=== PATIENT | male | born 1975 | race Caucasian/White ===

== ENCOUNTER 2018-02-06 10:44 | Emergency (ER) | payer OTHER ==
[~2018-02-06] VITALS: Ht 182.9 cm; Wt 123.0 kg
[~2018-02-06 10:44] MED LIST: BACL10TA PO; BUPR-79 PO; CLC100X PO; HYDR-3983 PO; LISI-725 PO; TRAZ50TA35 PO; ZNT/150 PO; ZOLP10TA PO
[2018-02-06 10:46] VITALS: TEMP 36.5; Ht 182.9 cm; Wt 123.0 kg
[2018-02-06] MEDS ORDERED: CITA10TA8 PO (11:31)
[2018-02-06] MEDS ORDERED: BACLOFEN 10 MG TAB PO STA (11:52)
--- NOTE | 2018-02-06 12:18 | DIAGNOSTIC IMAGING REPORT ---
L-SPINE MIN 4 VIEWS ROUTINE HISTORY: Pain r/o itp cath fx COMPARISON: 12/29/2012 FINDINGS: There is no fracture. Mild scoliosis Disc spaces are preserved. Infusion and or epidural catheter entering L4-L5 level lumbar spine. Its superior extent is not easily identified. IMPRESSION: 1. Mild scoliosis. 2. Epidural catheter positioned with the catheter entering the L4-L5 interspace although superior extent is not confirmed easily due to the poor catheter visibility. The above report was generated using voice recognition software. It may contain grammatical, syntax or spelling errors. Electronically signed by: Kemal Pires M.D. 02/06/2018 12:17 PM Dictated Date/Time: 02/06/2018 12:15 PM
--- NOTE | 2018-02-06 12:20 | DIAGNOSTIC IMAGING REPORT ---
ADDENDUM Note is made that the tip marker is at T7-T8 level of the thoracic spine. Again, the catheter itself is not visualized. Electronically signed by: Kemal Pires M.D. 02/06/2018 12:31 PM Dictated Date/Time: 02/06/2018 12:31 PM ORIGINAL REPORT THORACIC SPINE 3 VIEWS ROUTINE HISTORY: Catheter position r/o cath fx ITP COMPARISON: None. FINDINGS: There is no fracture. No subluxation. Disc spaces are preserved. Epidural catheter and superior extent is not well-defined on this study IMPRESSION: No acute process of the thoracic spine. Nondiagnostic visibility of the infusion catheter. The above report was generated using voice recognition software. It may contain grammatical, syntax or spelling errors. Electronically signed by: Kemal Pires M.D. 02/06/2018 12:18 PM Dictated Date/Time: 02/06/2018 12:18 PM
[2018-02-06 12:45] LABS: BASO % 0.1 %; BASO ABS # 0.01 K/uL (0-0.2); EOS % 0.2 %; EOS ABS # 0.02 K/uL (0-0.5); HEMATOCRIT 48.3 % (42-52); HEMOGLOBIN 16.9 g/dL (14.0-18.0); IG# 0.01 K/uL (0.00-0.02); LYMPH % 17.7 %; LYMPH ABS # 1.42 K/uL (1.2-3.4); MEAN CELL VOLUME 86.9 fL (80-100); MEAN CORPUSCULAR HEMOGLOBIN 30.4 pg (25-34); MEAN PLATELET VOLUME 11.7 fL (7.4-10.4); MONO % 5.5 %; MONO ABS # 0.44 K/uL (0.11-0.59); NEUT % 76.4 %; NEUT ABS # 6.11 K/uL (1.4-6.5); PLATELET COUNT 218 K/uL (130-400); RED CELL DISTRIBUTION WIDTH CV 12.9 % (11.5-14.5); WHITE BLOOD COUNT 8.01 K/uL (4.8-10.8)
--- NOTE | 2018-02-06 12:55 | Pain Management Consultation ---
Pain Management Consultation Date of Consultation Feb 06, 2018. Reason for Consultation Possible baclofen withdrawal History 42-year-old white male well-known to the 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 He had been doing fairly well in regards to spasticity due to the combination of intrathecal baclofen and Botox injections to his left upper extremity however last evening he started to note increasing spasticity over his left upper and lower extremities for no known etiology. He denies any trauma or falls or damage to his intrathecal pump. He admits to positive symptoms of dysuria and frequent urination. He denies any fever, chills, change in motor weakness or footdrop. He states that he is concerned about baclofen withdrawal and admits to feeling shaky, sweaty, vague abdominal pain, and that "something is not quite right." He reports a significant increase in involuntary motor movement to his left upper extremity. He did not utilize any oral baclofen yet this morning. He reports that he was due for a baclofen refill at the pain management office today. Past Medical/Surgical History (1) CVA (cerebral vascular accident) (2) Tuberculosis meningitis (3) Spasticity as late effect of cerebrovascular accident (CVA) (4) Status post insertion of intrathecal baclofen pump (5) Hypertension Social / Work History Smoking Status: Never smoker Smokeless Tobacco Use: No Alcohol Use: none Drug Use: none Marital Status: single Housing Status: lives with family Occupation: disabled, other Allergies Coded Allergies: Corticosteroids (Verified Allergy, Unknown, _, 02/06/18) Egg (Verified Allergy, Unknown, _, 02/06/18) Latex1 -Allergic Contact Dermititis (Verified Allergy, Unknown, RASH, 02/06) Medications Baclofen Wellbutrin Celexa [place] Lisinopril Zantac Trazodone Ambien Review of Systems Constitutional: Negative for fever, chills, positive for sweating Eyes: Negative for eye pain, photophobia, drainage Ear, nose, mouth, throat: Negative for ear pain, nasal congestion, mouth lesions , change in voice Respiratory: Negative for wheezing, sputum production Cardiovascular: Negative for chest pain, palpitations, calf pain Gastrointestinal: Positive for abdominal pain, negative for belching, bloating Genitourinary: Positive for dysuria, negative urinary incontinence, positive urinary urgency Musculoskeletal: Negative for deformities Integumentary: Negative for nail changes, skin yellowing, pruritus Neurological: Negative for abnormal speech, seizure type activity Physical Exam Height & Weight: Height 6 feet, 0 inches. Weight 123.000 (Kilograms) 271 (Pounds) Last Vital Signs Documentation Date Time Temp Pulse Resp B/P (MAP) Pulse Ox O2 Delivery O2 Flow Rate FiO2 02/06/18 10:46 36.5 87 18 200/134 97 Room Air Exam: Constitutional: Well-developed, well-nourished, healthy-appearing, overweight. He appears to be sweaty, shaky, anxious Psych: Awake, alert, and oriented 3 with normal affect and mood. Recent memory appears grossly intact Eyes: Pupils are equally round and reactive to light with normal size pupils, eyelids appear normal Ear, nose, mouth, and throat: Moist nasal and oral membranes, lips and tongues appear normal, no external ear abnormalities are noted Neck: The trachea is midline without deviation and no thyromegaly is noted Respiratory: Normal respiratory effort without distress, no audible wheezes or rhonchi CV: Normal S1 and S2, carotid upstroke is within normal limits Chest: Deferred GI/abdomen: Non-tender without guarding, no masses noted, intrathecal pump is located in the right lower quadrant no signs of fluctuance drainage or discharge or dehiscence surrounding the intrathecal pump pocket Musculoskeletal: Head is normocephalic and atraumatic, gait was not observed Cervical: Lordotic curve: Normal Range of motion is normal with extension, flexion, side- bending, rotation Tenderness: Non-tender over the axial midline Strength: Strength is 5 out of 5 strength right upper extremity in all planes, difficult to assess in the left secondary to significant/substantial involuntary movements of the entire left upper extremity. Flexion contracture of the hand/wrist is noted. No evidence of allodynia, hyperpathia or hyperalgesic response. Sensation of upper extremities: Intact bilaterally Myofascial spasm: Significant spasticity noted over the left upper extremity globally. Thoracic: Kyphotic curve: Normal Range of motion is normal with extension, flexion, side- bending, rotation Tenderness: Nontender over the axial midline Lumbar: Lordotic curve: Decreased with a well-healed incision over the catheter site no fluctuance drainage dehiscence noted around the intrathecal catheter site Range of motion is slightly decreased with extension, flexion, side-bending, rotation secondary to overall condition of spasticity and body habitus Tenderness: Nontender over the axial midline Strength: Strength is equal in the right lower extremity with 5 out of 5 strength in all planes, significant spasticity in the left lower extremity prohibits ability for strength testing Sensation of lower extremities: Intact bilaterally Myofascial spasm: No appreciable spasm in the right lower extremity. Significant hamstring and quadricep as well as gastroc spasticity in the left lower extremity Greater trochanters: Nontender bilaterally Sacroiliac joints: Nontender bilaterally Fabere and Gaenslens: negative bilaterally Pathologic reflexes noted: None Skin: No rashes, lesions, ulcers, and duration are noted Neuro: No nystagmus noted, the tongue is midline, the patient is able to rotate their head bilaterally : Deferred Laboratory Laboratory Review: no results for review Laboratory Results (Last CBC): UA, CBC and PRP pending Imaging Radiology Findings Patient: SOREN BRADFORD Address1: [address] [facility] Rec: [id number] Address2: Acct ID: [id number] [facility] Zip: [place] [address] Date: 1975 Sex: M Room/Bed: Ref Phy: Ariel Mendoza D.O. SC: TANO Att Phy: Report #: [id number] Tenisha Phy: Ariel Mendoza D.O. Test: LS Admit Phy: Buttonhole Facer: EULALIA Interpreting Phy: Kemal Pires M.D. Diagnosis: THINKS BACLOFEN PUMPS NOT WORKING Ordering Phy: Karla Hargrove D.O. Service Date: 02/06/18 Admit Date: 02/06/18 MNE: PWRSCRIBE CONF: DICTATED BY: Kemal Pires M.D.]] CC: Karla Hargrove, Vini Lance D.O. Usaitis, Robert J, D.O. Endcc: [~ rep ct add3]] L-SPINE MIN 4 VIEWS ROUTINE HISTORY: Pain r/o itp cath fx COMPARISON: 12/29/2012 FINDINGS: There is no fracture. Mild scoliosis Disc spaces are preserved. Infusion and or epidural catheter entering L4-L5 level lumbar spine. Its superior extent is not easily identified. IMPRESSION: 1. Mild scoliosis. 2. Epidural catheter positioned with the catheter entering the L4-L5 interspace although superior extent is not confirmed easily due to the poor catheter visibility. Patient: SOREN BRADFORD Address1: [address] [facility] Rec: [id number] Address2: Acct ID: [id number] [facility] Zip: [place] [address] Date: 1975 Sex: M Room/Bed: Ref Phy: Ariel Mendoza D.O. SC: TANO Att Phy: Report #: [id number] Tenisha Phy: Ariel Mendoza D.O. Test: TS3 Admit Phy: Buttonhole Facer: EULALIA Interpreting Phy: Kemal Pires M.D. Diagnosis: THINKS BACLOFEN PUMPS NOT WORKING Ordering Phy: Karla Hargrove D.O. Service Date: 02/06/18 Admit Date: 02/06/18 MNE: PWRSCRIBE CONF: DICTATED BY: Kemal Pires M.D.]] CC: Karla Hargrove, Vini Lance D.O. Usaitis, Robert J, D.O. Endcc: [~ rep ct add3]] ADDENDUM Note is made that the tip marker is at T7-T8 level of the thoracic spine. Again, the catheter itself is not visualized. Electronically signed by: Kemal Pires M.D. 02/06/2018 12:31 PM Dictated Date/Time: 02/06/2018 12:31 PM ORIGINAL REPORT THORACIC SPINE 3 VIEWS ROUTINE HISTORY: Catheter position r/o cath fx ITP COMPARISON: None. FINDINGS: There is no fracture. No subluxation. Disc spaces are preserved. Epidural catheter and superior extent is not well-defined on this study IMPRESSION: No acute process of the thoracic spine. Nondiagnostic visibility of the infusion catheter. Past Records Previous Records: personally reviewed by me Assessment 1. 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 Possible baclofen withdrawal 3. Possible urinary tract infection Recommendations 1. Awaiting UA, CBC, PRP, CT thoracolumbar spine imaging at the current time to rule out catheter fracture or infection as etiology of increased spasms. 2. I did increase his baclofen pump 10% to run in flex dosing at a total daily dose of 436 pg per day. He has an ANGEL of 16 months and 5.7 mL reservoir volume and a refill interval of 7 days to alarm on 02/13/2018. Provided the laboratory studies are appropriate will plan for intrathecal baclofen refill today. 3. Baclofen 10 mg p.o. 1 now. 4. Should imaging and laboratory studies fail to show evidence of infection or catheter fracture may necessitate catheter access port study to rule out other catheter pathology. 5. Thank you for this consultation Addendum @1250: The patient's labs and imaging was reviewed in the computer and with the radiologist. There is no evidence of infection as etiology of increased spasms. No evidence on imaging for catheter fracture or disruption. Recommend continuation of baclofen PO and increased baclofen via intrathecal pump. His intrathecal pump refill was completed today after informed consent was obtained. The patient will f/u in our office 02/08/18 at 1320 with [facility]. He has our 17/01 office emergency contact information if he should have any questions or concerns. INTRATHECAL PUMP REFILL AND REPROGRAM PROCEDURE Procedure performed/supervised by: Karla Hargrove DO. Pump site: Left lower quadrant. Pump size: 20 mL. Medication: Baclofen preservative-free 2000 mcg/mL. Daily dose: Baclofen 436 mcg per day. ANGEL: 16 months. Informed consent was obtained and witnessed. He was placed in the supine position. Immediately prior to starting the procedure, a ``time out was conducted with the staff and the patient where the patient was identified, proposed procedure was verified, consent was reviewed and the proper site for the planned procedure was identified. On examination, no signs of skin breakdown or infection were noted at the injection site. The site was cleansed with DuraPrep followed by Betadine. Sterile drapes were applied. Using the template and 22 gauge, 1.5 inch non-coring Adams needle pump reservoir was accessed uneventfully. 7 mL of the remaining medication for pump was removed and discarded. This volume was compared to the calculated volume of 5.7 mL. Pump was then refilled with medications as documented above. Bacteriostatic filter and constant negative pressure was maintained throughout the refill. Needle was withdrawn. Hemostasis noted. Band-Aid was applied. Pump was reprogrammed as documented above. Patient was given a printout and discharge instructions. Patient voiced understanding. They were discharged with an adult driver material handler.
[2018-02-06 13:03] LABS: CALCIUM 9.6 mg/dl (8.5-10.1); CREATININE 1.05 mg/dl (0.60-1.40)
[2018-02-06 13:09] LABS: POTASSIUM 4.1 mmol/L (3.5-5.1)
--- NOTE | 2018-02-06 13:43 | DIAGNOSTIC IMAGING REPORT ---
THORACIC SPINE WITHOUT CLINICAL HISTORY: 42 years-old Male presenting with r/o ITP, cath fx, baclofen withdrawal. TECHNIQUE: Multidetector CT of the thoracic spine was performed without the use of intravenous contrast. IV contrast: None. A dose lowering technique was used consistent with the principles of ALARA (as low as reasonably achievable). COMPARISON: Plain radiographs from earlier the same day. CT DOSE (mGy.cm): The estimated cumulative dose is 2741.73 mGy.cm. FINDINGS: Bus Mechanic topogram: Unremarkable. Normal thoracic kyphosis. No significant scoliosis. Vertebral bodies maintain normal height and alignment. Intervertebral disc heights preserved. Multilevel degenerative changes in the lower thoracic and upper lumbar spine. No osseous neural foraminal narrowing. No acute fracture or subluxation. The tip of the intraspinal catheter terminates at T8-9. No evidence of discontinuity of the catheter along the visualized course though the catheter is not exceedingly radiopaque. The catheter extends inferior to the [id number] within the spinal canal. Paraspinal soft tissues within normal limits allowing for noncontrast technique. Atherosclerosis noted. Visualized portion of the lungs are clear. IMPRESSION: 1. Visualized portion of the intraspinal catheter appears intact. A catheter terminates at T8-9. 2. No acute osseous injury or advanced degenerative change of the thoracic spine. Electronically signed by: Royal Streeter M.D. 02/06/2018 1:41 PM Dictated Date/Time: 02/06/2018 1:34 PM
--- NOTE | 2018-02-06 13:44 | DIAGNOSTIC IMAGING REPORT ---
LUMBAR SPINE WITHOUT CT DOSE: HISTORY: Catheter position r/o ITP cath fx, baclofen withdrawal TECHNIQUE: Multiaxial CT images of the lumbar spine were performed and reformatted in the sagittal and coronal plane without the use of contrast. A dose lowering technique was utilized adhering to the principles of ALARA. COMPARISON: None. FINDINGS: Catheter enters the L3-L4 interspinous space and proceeds in a superior fashion within the spinal canal to the T7-T8 level. The catheter appears intact. IMPRESSION: Infusion catheter appears intact within the lumbar spinal region. The above report was generated using voice recognition software. It may contain grammatical, syntax or spelling errors. Electronically signed by: Kemal Pires M.D. 02/06/2018 1:43 PM Dictated Date/Time: 02/06/2018 1:40 PM
[2018-02-06 14:09] VITALS: BP 176/97; PULSE 71; O2SAT 98
--- NOTE | 2018-02-06 14:25 | EMERGENCY ROOM VISIT NOTE ---
History Report prepared by Didier: Reji Daniel Under the Supervision of: Dr. Vini Pemberton D.O. First contact with patient: 11:10 Chief Complaint: OTHER COMPLAINT Stated Complaint: THINKS BACLOFEN PUMPS NOT WORKING History of Present Illness The patient is a 42 year old male who presents to the Emergency Room with complaints of worsening spasms in his left upper extremity that he began to experience last night. The patient is also complaining of "really bad sweats, jitteriness, and increased urinary frequency." He adds that since last night he has been urinating every 15 minutes or so. 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 Today is the patient's scheduled date to have his Baclofen pump refilled, but he felt that he could not drive himself any longer so he brought himself into the emergency department. He states that he does not feel safe to drive to the Pain Management clinic. He does have a scheduled appointment at 1300 today. Source of History: patient Onset: Last night Position: arm (left) Quality: other (spasms) Timing: worsening Associated Symptoms: + diaphoresis Review of Systems See HPI for pertinent positives & negatives. A total of 10 systems reviewed and were otherwise negative. 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 Social History Smoking Status: Never Smoker Alcohol Use: none Drug Use: none Marital Status: single Occupation Status: other Current/Historical Medications Scheduled Baclofen (Lioresal), 20 MG PO BID Bupropion (Wellbutrin Sr), 150 MG PO DAILY Citalopram Hydrobromide (Celexa), Unknown Dose PO DAILY Lisinopril (Zestril), 20 MG PO DAILY Ranitidine Hcl (Zantac), 150 MG PO BID Trazodone Hcl (Trazodone), 100 MG PO HS Zolpidem Tartrate (Ambien), 10 MG PO HS Scheduled PRN Hydrocodone/Acetaminophen 7.5MG/325MG (Marathon 7.5MG/325MG), 1 TAB PO BID PRN for Pain Allergies Coded Allergies: Corticosteroids (Verified Allergy, Unknown, _, 02/06/18) Egg (Verified Allergy, Unknown, _, 02/06/18) Latex1 -Allergic Contact Dermititis (Verified Allergy, Unknown, RASH, 02/06) Physical Exam Vital Signs Date Time Temp Pulse Resp B/P (MAP) Pulse Ox O2 Delivery O2 Flow Rate FiO2 02/06/18 14:09 71 16 176/97 98 Room Air 02/06/18 12:45 76 18 177/107 98 Room Air 02/06/18 10:46 36.5 87 18 200/134 97 Room Air Physical Exam CONSTITUTIONAL/VITAL SIGNS: Reviewed / noted above. GENERAL: Non-toxic in appearance. INTEGUMENTARY: He has mild diaphoresis. HEAD: Normocephalic. EYES: without scleral icterus or trauma. ENT/OROPHARYNX: clear and moist. LYMPHADENOPATHY/NECK: Is supple without lymphadenopathy or meningismus. RESPIRATORY: Lungs clear and equal. CARDIOVASCULAR: Regular rate and rhythm. GI/ABDOMEN: Soft and nontender. No organomegaly or pulsatile mass. No rebound or guarding. Normal bowel sounds. EXTREMITIES: Warm and well perfused. Mild spasm of the LUE. BACK: No CVA tenderness. NEUROLOGICAL: Intact without focal deficits. PSYCHIATRIC: normal affect. MUSCULOSKELETAL: Normally developed with good muscle tone. Medical Decision & Procedures ER Provider Diagnostic Interpretation: Radiology results as stated below per my review and radiologist interpretation: LUMBAR SPINE WITHOUT CT DOSE: HISTORY: Catheter position r/o ITP cath fx, baclofen withdrawal TECHNIQUE: Multiaxial CT images of the lumbar spine were performed and reformatted in the sagittal and coronal plane without the use of contrast. A dose lowering technique was utilized adhering to the principles of ALARA. COMPARISON: None. FINDINGS: Catheter enters the L3-L4 interspinous space and proceeds in a superior fashion within the spinal canal to the T7-T8 level. The catheter appears intact. IMPRESSION: Infusion catheter appears intact within the lumbar spinal region. The above report was generated using voice recognition software. It may contain grammatical, syntax or spelling errors. Electronically signed by: Kemal Pires M.D. 02/06/2018 1:43 PM Dictated Date/Time: 02/06/2018 1:40 PM THORACIC SPINE WITHOUT CLINICAL HISTORY: 42 years-old Male presenting with r/o ITP, cath fx, baclofen withdrawal. TECHNIQUE: Multidetector CT of the thoracic spine was performed without the use of intravenous contrast. IV contrast: None. A dose lowering technique was used consistent with the principles of ALARA (as low as reasonably achievable). COMPARISON: Plain radiographs from earlier the same day. CT DOSE (mGy.cm): The estimated cumulative dose is 2741.73 mGy.cm. FINDINGS: Blurb Writer topogram: Unremarkable. Normal thoracic kyphosis. No significant scoliosis. Vertebral bodies maintain normal height and alignment. Intervertebral disc heights preserved. Multilevel degenerative changes in the lower thoracic and upper lumbar spine. No osseous neural foraminal narrowing. No acute fracture or subluxation. The tip of the intraspinal catheter terminates at T8-9. No evidence of discontinuity of the catheter along the visualized course though the catheter is not exceedingly radiopaque. The catheter extends inferior to the [id number] within the spinal canal. Paraspinal soft tissues within normal limits allowing for noncontrast technique. Atherosclerosis noted. Visualized portion of the lungs are clear. IMPRESSION: 1. Visualized portion of the intraspinal catheter appears intact. A catheter terminates at T8-9. 2. No acute osseous injury or advanced degenerative change of the thoracic spine. Electronically signed by: Royal Streeter M.D. 02/06/2018 1:41 PM Dictated Date/Time: 02/06/2018 1:34 PM L-SPINE MIN 4 VIEWS ROUTINE HISTORY: Pain r/o itp cath fx COMPARISON: 12/29/2012 FINDINGS: There is no fracture. Mild scoliosis Disc spaces are preserved. Infusion and or epidural catheter entering L4-L5 level lumbar spine. Its superior extent is not easily identified. IMPRESSION: 1. Mild scoliosis. 2. Epidural catheter positioned with the catheter entering the L4-L5 interspace although superior extent is not confirmed easily due to the poor catheter visibility. The above report was generated using voice recognition software. It may contain grammatical, syntax or spelling errors. Electronically signed by: Kemla Pires M.D. 02/06/2018 12:17 PM Dictated Date/Time: 02/06/2018 12:15 PM ADDENDUM Note is made that the tip marker is at T7-T8 level of the thoracic spine. Again, the catheter itself is not visualized. Electronically signed by: Kemal Pires M.D. 02/06/2018 12:31 PM Dictated Date/Time: 02/06/2018 12:31 PM ORIGINAL REPORT THORACIC SPINE 3 VIEWS ROUTINE HISTORY: Catheter position r/o cath fx ITP COMPARISON: None. FINDINGS: There is no fracture. No subluxation. Disc spaces are preserved. Epidural catheter and superior extent is not well-defined on this study IMPRESSION: No acute process of the thoracic spine. Nondiagnostic visibility of the infusion catheter. The above report was generated using voice recognition software. It may contain grammatical, syntax or spelling errors. Electronically signed by: Kemal Piers M.D. 02/06/2018 12:18 PM Dictated Date/Time: 02/06/2018 12:18 PM Laboratory Results 02/06/18 12:30 Red Blood Count 5.56, Mean Corpuscular Volume 86.9, Mean Corpuscular Hemoglobin 30.4, Mean Corpuscular Hemoglobin Concent 35.0, Mean Platelet Volume 11.7, Neutrophils (%) (Auto) 76.4, Lymphocytes (%) (Auto) 17.7, Monocytes (%) (Auto) 5.5, Eosinophils (%) (Auto) 0.2, Basophils (%) (Auto) 0.1, Neutrophils # (Auto) 6.11, Lymphocytes # (Auto) 1.42, Monocytes # (Auto) 0.44, Eosinophils # (Auto) 0.02, Basophils # (Auto) 0.01 02/06/18 12:30 Test 02/06/18 11:30 02/06/18 12:30 Urine Color YELLOW Urine Appearance CLEAR (CLEAR) Urine pH 5.0 (4.5-7.5) Urine Specific Alpha 1.016 (1.000-1.030) Urine Protein NEG (NEG) Urine Glucose (UA) NEG (NEG) Urine Ketones NEG (NEG) Urine Occult Blood NEG (NEG) Urine Nitrite NEG (NEG) Urine Bilirubin NEG (NEG) Urine Urobilinogen NEG (NEG) Urine Leukocyte Esterase NEG (NEG) White Blood Count 8.01 K/uL (4.8-10.8) Red Blood Count 5.56 M/uL (4.7-6.1) Hemoglobin 16.9 g/dL (14.0-18.0) Hematocrit 48.3 % (42-52) Mean Corpuscular Volume 86.9 fL (80-100) Mean Corpuscular Hemoglobin 30.4 pg (25-34) Mean Corpuscular Hemoglobin Concent 35.0 g/dl (32-36) Platelet Count 218 K/uL (130-400) Mean Platelet Volume 11.7 fL (7.4-10.4) Neutrophils (%) (Auto) 76.4 % Lymphocytes (%) (Auto) 17.7 % Monocytes (%) (Auto) 5.5 % Eosinophils (%) (Auto) 0.2 % Basophils (%) (Auto) 0.1 % Neutrophils # (Auto) 6.11 K/uL (1.4-6.5) Lymphocytes # (Auto) 1.42 K/uL (1.2-3.4) Monocytes # (Auto) 0.44 K/uL (0.11-0.59) Eosinophils # (Auto) 0.02 K/uL (0-0.5) Basophils # (Auto) 0.01 K/uL (0-0.2) RDW Standard Deviation 41.0 fL (36.4-46.3) RDW Coefficient of Variation 12.9 % (11.5-14.5) Immature Granulocyte % (Auto) 0.1 % Immature Granulocyte # (Auto) 0.01 K/uL (0.00-0.02) Anion Gap 7.0 mmol/L (3-11) Est Creatinine Clear Calc Drug Dose 124.1 ml/min Estimated GFR () 101.0 Estimated GFR (Non- 87.1 BUN/Creatinine Ratio 10.7 (10-20) Calcium Level 9.6 mg/dl (8.5-10.1) Laboratory results as stated above per my review. Medications Administered Medications (Trade) Dose Ordered Sig/Sha Route Start Time Stop Time Status Last Admin Dose Admin Baclofen (Lioresal Tab) 10 mg NOW STAT PO 02/06/18 11:52 02/06/18 11:53 DC 02/06/18 11:57 10 MG ED Course 1113: Previous medical records were reviewed. The patient was evaluated in room C3. A complete history and physical examination was performed. 1142: I discussed the case with Dr. Karla Hargrove - Pain Management. She will admit the patient to the hospitalist staff. 1152: Ordered Baclofen 10 mg PO. Medical Decision Differential includes infection, baclofen pump failure, ran out of baclofen pump medication. This is a 42-year-old male who presents to the ED with a chief complaint that he may be having baclofen withdrawal. The patient reports increased spasm in his left arm as well as some diaphoresis. He also feels a little jittery and last night was peeing a lot. I spoke with Dr. Hargrove about the patient. She saw the patient in the emergency department and did an evaluation with regards to the pump. Refer to her note for additional information. The patient's blood work and urinalysis today was unremarkable. He did have some x-rays and CAT scans are also unremarkable. The patient was discharged on oral baclofen by Dr. Hargrove. The patient was given a dose here. He was also given a dose of trazodone and Ambien for tonight as he is staying at his brother's house. He was felt to be stable for discharge. He is following up Tuesday with Dr. Hargrove in the office. Medication Reconcilliation Current Medication List: was personally reviewed by me Blood Pressure Screening Patient's blood pressure: Elevated blood pressure Blood pressure disposition: Elevated BP felt to be situational Impression Primary Impression: Drug withdrawal Additional Impression: Presence of intrathecal baclofen pump Scribe Attestation The scribe's documentation has been prepared under my direction and personally reviewed by me in its entirety. I confirm that the note above accurately reflects all work, treatment, procedures, and medical decision making performed by me. Departure Information Dispostion Home / Self-Care Referrals Ariel Mendoza D.O. (PCP) Patient Instructions My [facility] Additional Instructions Follow-up with Dr. Hargrove on Tuesday as scheduled. Take baclofen as prescribed by Dr. Hargrove. 1 dose of trazodone and 1 dose of Ambien was provided for you for tonight. Problem Qualifiers
[2018-02-06] MEDS ORDERED: TRAZODONE HCL 100 MG TAB PO ONE (14:30)
[2018-02-06] MEDS ORDERED: ZOLPIDEM TARTRATE 10 MG TAB PO ONE (14:30)
[2018-02-13] MEDS ORDERED: NXM/40 PO (13:09)
== END 2018-02-06 14:37 | disposition home or self-care (01) ==
LOC: C.EDB 10:45 → C.EDC 14:37
DX: F19.239 Other psychoactive substance dependence with withdrawal, unspecified (principal); M62.838 Other muscle spasm; Z96.89 Presence of other specified functional implants; Z86.73 Personal history of transient ischemic attack (TIA), and cerebral infarction without residual deficits; Z86.11 Personal history of tuberculosis; I10 Essential (primary) hypertension; Z91.012 Allergy to eggs; Z91.040 Latex allergy status; Z88.8 Allergy status to other drugs, medicaments and biological substances

== ENCOUNTER 2025-01-03 06:01 | Observation (INO) ==
--- NOTE | 2025-01-01 14:20 | History & Physical Report ---
Date of Service January 01, 2025 Assessment & Plan (1) Spasticity as late effect of cerebrovascular accident (CVA): (2) Presence of intrathecal pump: Plan: Intrathecal pump was last replaced in 2018. Estimated replacement indicator is to alarm December of 2024. Since the intrathecal pump is near end of battery life, it is recommended that the pump be replaced. Catheter will remain intact. He is scheduled for pump replacement on 01/03/2025. Risks and benefits were reviewed with the patient and he is understanding. He would like to proceed with the surgical procedure. He will proceed with intrathecal pump replacement with possible revision or replacement of the catheter. History of Present Illness Christopher Clark is a 49 year old white male that is well known to the [facility] with a history of left upper extremity spasticity secondary to a CVA that occurred when he was an infant due to tuberculosis meningitis. Patient is unable to control the movements of the left upper extremity. An intrathecal baclofen pump and catheter delivery system was implanted in 2012 and again replaced in 2018. Patient does report improvement in the spasticity of the left arm since the implantation of the intrathecal Baclofen pump and catheter delivery system. He is also receiving Botox injections into the arm which is helping diminish the spasm. Patient does report associated pain with the spast icity. He rates his pain a 6/10 on most days. He will take Hydrocodone sparingly which does help. Case discussed with Dr. Lacy Allergies Allergy/AdvReac Type Severity Reaction Status Date / Time egg Allergy Unknown SEVERE GI Verified 12/24/24 15:05 UPSET Steroids Allergy see note Uncoded 12/24/24 15:05 Home Medications Medication Instructions Recorded Confirmed Type ibuprofen 200 mg tablet 800 mg PO BID PRN 04/17/19 12/24/24 History trazodone 100 mg tablet 100 mg PO HS #90 tabs 06/13/24 12/24/24 Rx citalopram 20 mg tablet 20 mg PO QAM #90 tabs 08/13/24 12/24/24 Rx bupropion HCl 150 mg 24 hr tablet, 150 mg PO QAM 11/29/24 12/24/24 History extended release lansoprazole 15 mg capsule,delayed 15 mg PO PRN 11/29/24 12/24/24 History release zolpidem 10 mg tablet 10 mg PO HS PRN Sleep #30 tabs 12/12/24 12/24/24 Rx nystatin 100,000 unit/gram topical 1 applic topical BID PRN Fungal 12/13/24 12/24/24 Rx cream rash #30 grams baclofen 10 mg tablet 20 mg (2 x 10 mg) PO TID PRN 12/20/24 12/24/24 Rx spasms #60 tabs Past Med/Surg History Problem List Polyuria Weakness generalized Insomnia Bilateral hydrocele Left foot drop Sleeping difficulties Osteoarthritis of left shoulder Chronic left shoulder pain (Chronic) Tick bite of axillary region (Acute) End of battery life of intrathecal infusion pump Encounter for pre-operative examination Spasticity (Chronic) left arm Hypertension (Chronic) Presence of intrathecal pump (Chronic) Baclofen Muscle spasticity (Chronic) Depression (Chronic) Anxiety (Chronic) Stroke (Chronic) OCCURED IN 1977. PT HAS LEFT ARM SPACTICITY Spasticity as late effect of cerebrovascular accident (CVA) (Chronic) Hypertension (Chronic) Medical History History of esophageal stricture Obesity TMJ (temporomandibular joint syndrome) Occasionally "locks" when he yawns and needs "wiggled" to get it to close again. Osteoarthritis Most severe in left shoulder History of tuberculous meningitis Age 2, cause CVA Psoriasis Surgical History H/O oral surgery History of esophageal dilatation History of surgery PAIN PUMP PLACEMENT WITH CATHETER - Grade 3 view. Atraumatic intubation with Calle 3. ETT 8.0 (2012) Status post insertion of intrathecal baclofen pump Family History Brother Myocardial infarction Brother Myocardial infarction Skin cancer Father Myocardial infarction Cancer Mother Endometrial cancer Uncle Cancer Denies family history of Ovarian cancer Prostate cancer Breast cancer Colorectal cancer Social History Smoking Status: Former smoker Tobacco Type: Cigarettes and Cigars Age Started Using Tobacco: 18; Age Quit Using Tobacco: 34; packs per day: 2; Second Hand Exposure: No; Do You Dip or Chew Tobacco: No; Hx Alcohol Use: No Hx Substance Use: No Preferred Language: Turkish Communication Ability: Effective Visual Impairment: No Limitations Hearing Ability: Normal Biologics Specialist Required: No Beliefs That Will Affect Care: None marital status: Single Current Living Situation: Alone current occupational status: disabled Feels Safe at Home: Yes Childhood Exposure to Second-Hand Smoke: No Diet: regular Diet Comment: NO EGGS Dental Care, Regularly: No Physical Activity Frequency: 1-2 Times per Week Seatbelt Use: always Sunscreen Use: No Review of Systems Review of Systems: All systems reviewed & are unremarkable except as noted in HPI & below Physical Exam Physical Exam: GENERAL: This is a 49 year old male in no acute distress. HEAD/FACE: Normocephalic and atraumatic. EYES: No drainage or conjunctival injection. ENT: Nose without bleeding or discharge. Oral mucosa moist. NECK: Full ROM without apparent pain. No swelling or masses noted. RESPIRATORY: Patient with unlabored breathing. No signs of respiratory distress. CHEST/AXILLA: Chest movement symmetrical. No deformities noted. Abdomen: Soft and nondistended. Intrathecal pump site in the right lower quadrant without evidence of edema or erythema. BACK: Moves without difficulty SKIN: [place], warm and dry. No rash noted. MS/EXTREMITY: No swelling, no deformities. Involuntary movements of the left upper extremity. NEURO: Alert and appears oriented. Speech is fluent. Cranial Nerves are grossly intact. PSYCH: Alert, pleasant, affect is calm
--- NOTE | 2025-01-02 08:27 | Anesthesiology Consultation ---
Date of Service January 02, 2025 Assessment & Plan (1) Encounter for pre-operative examination: - Case discussed in detail with Dr. Smallwood who advised patient is acceptable to proceed including regarding persistent chest pressure; he advised checking EKG STAT am DOS. - ER 12/24/24 [facility]: "...problem with his baclofen pump. Patient reports that since he has been feeling very irritable hot dry mouth could not sleep cough chest pain that is intermittent. He states he felt that way previously when his baclofen pump was out so he thought he was going through baclofen withdrawal. Patient states he took extra doses of his trazodone and baclofen which he is allowed to do which helped him sleep and his symptoms got better. He states he went to see pain management today to evaluate his baclofen pump who told him that the baclofen pump was not empty and there is no malfunction to it and referred him to the emergency department...patient is watching TV in no acute distress. Patient reports no complaints at this time. Labs and imaging are unremarkable. Patient be discharged follow-up PCP and pain management who referred him to the emergency department. DISCHARGE - Plan of care discussed with patient and questions answered. The patient was given both verbal and prin hope discharge instructions. The patient verbalized understanding and ability to comply..." - Per marketing summer intern on 01/02/25: No known infectious disease contacts, current infectious disease symptoms in past 10 days or COVID positive test result in the past 30 days. Chart Review Chart Review: Acceptable Risk for Surgery and Patient NOT seen in Pre Admission Testing History Surgery Operation Date: 01/03/25 07:30 Proposed Procedures p Replacement of Intrathecal Medication Administration Pump System with Possible Replacement or Revision of Intrathecal Catheter - Burak Lacy MD, FIPP Height/Weight Height: 6 ft 1 in Weight: 120.202 kg Allergies Allergy/AdvReac Type Severity Reaction Status Date / Time egg Allergy Unknown SEVERE GI Verified 01/02/25 07:33 UPSET Steroids Allergy see note Uncoded 01/02/25 07:33 Medications Home Medications Medication Instructions Recorded Confirmed Last Taken ibuprofen 200 mg tablet 800 mg PO BID Pain 04/17/19 01/02/25 Unknown trazodone 100 mg tablet 100 mg PO HS #90 tabs 06/13/24 01/02/25 Unknown citalopram 20 mg tablet 20 mg PO QAM #90 tabs 08/13/24 01/02/25 Unknown bupropion HCl 150 mg 24 hr tablet, 150 mg PO QAM 11/29/24 01/02/25 Unknown extended release lansoprazole 15 mg capsule,delayed 15 mg PO UD PRN GERD 11/29/24 01/02/25 Unknown release zolpidem 10 mg tablet 10 mg PO HS PRN Sleep #30 tabs 12/12/24 01/02/25 Unknown nystatin 100,000 unit/gram topical 1 applic topical BID PRN Fungal 12/13/24 01/02/25 Unknown cream rash #30 grams baclofen 10 mg tablet 20 mg (2 x 10 mg) PO TID PRN 12/20/24 01/02/25 Unknown spasms #60 tabs lisinopril 40 mg tablet 40 mg PO UD PRN Hypertension 01/02/25 01/02/25 Unknown Past Medical History Medical History Anxiety and depression Chronic left shoulder pain History of esophageal stricture History of hypertension History of polyuria History of stroke age 2, due to tuberculous menigitis; reason for current pain pump per pt. History of tuberculous meningitis Age 2, cause CVA Hx of gastroesophageal reflux (GERD) Hx of hydrocele resolved per pt. Hx of insomnia Left foot drop Obesity Osteoarthritis Most severe in left shoulder Psoriasis Spasticity as late effect of cerebrovascular accident (CVA) hx, result of stroke at age 2; "mainly left arm" per pt TMJ (temporomandibular joint syndrome) Occasionally "locks" when he yawns and needs "wiggled" to get it to close again. Weakness generalized "ongoing" per pt 12/24/24-recently seen in [place] ER for weakness and chest pressure-"they checked everything with my heart and lungs and said it all looked good. but still having some chest pressure."--advised to return to ER if pressure continues Past Family History Family History Brother Myocardial infarction Brother Myocardial infarction Skin cancer Father Myocardial infarction Cancer Mother Endometrial cancer Uncle Cancer Denies family history of Ovarian cancer Prostate cancer Breast cancer Colorectal cancer Past Surgical History Surgical History H/O oral surgery History of esophageal dilatation History of esophagogastroduodenoscopy (EGD) Status post insertion of intrathecal baclofen pump PAIN PUMP PLACEMENT WITH CATHETER - Grade 3 view. Atraumatic intubation with Calle 3. ETT 8.0 (2012) 2018, replacement of pain pump catheter Social History Smoking Status: Former smoker tobacco type: cigarettes Do You Dip or Chew Tobacco: No Smoking End Date: years ago Hx Alcohol Use: Yes (quit years ago) Alcohol type: other alcohol intake frequency: holidays/special occasions only Hx Substance Use: No substance use type: does not use Lab Results Anesthesia Preop Results Results Anesthesia Widget: WBC 8.65 K/ul (4.8-10.8) 12/24/24 Hgb 15.5 g/dl (14.0-18.0) 12/24/24 Hct 45.3 % (42.0-52.0) 12/24/24 Plt 219 K/uL (130-400) 12/24/24 Na 139 mmol/L (136-145) 12/24/24 K 3.8 mmol/L (3.5-5.1) 12/24/24 Cl 101 mmol/L (98-107) 12/24/24 CO2 31 mmol/L (21-32) 12/24/24 BUN 11 mg/dl (6-23) 12/24/24 Creat 0.93 mg/dl (0.6-1.4) 12/24/24 Glucose Level 107 mg/dl (70-99(Fasting)) H 12/24/24 Testing Laboratory Results 12/27/24 UA: negative; urine culture no growth Electrocardiogram Date: 12/24/24 NSR, rate 71 bpm Poor R wave progression, consider anterior RI vs lead placement vs LVH Chest X-Ray Date: 12/24/24 *1 view* No active disease. Other Testing Head CT 12/24/24 1. Unchanged cerebral atrophy, old infarcts, and chronic small vessel ischemic disease 2. Otherwise unremarkable noncontrast CT of the brain
[2025-01-03] MEDS: LACTATED RINGER'S 1,000 ML IV SCH ×2 (06:49)
[2025-01-03] MEDS ORDERED: MIDAZOLAM HCL 1 MG/ML 2ML VIAL ONE (06:59)
[2025-01-03] MEDS ORDERED: ONDANSETRON INJ 2 MG/ML 2 ML VIAL ONE (06:59)
[2025-01-03] MEDS ORDERED: LIDOCAINE 2% 2 ML VIAL/AMP(20MG/ML) INFIL ONE (06:59)
[2025-01-03] MEDS ORDERED: PROPOFOL IV EMULSION 10 MG/ML 20 ML VIAL IV ONE (06:59)
[2025-01-03] MEDS ORDERED: ROCURONIUM BROMIDE 10 MG/ML 5 ML VIAL IV ONE (07:11)
[2025-01-03] MEDS ORDERED: PROMETHAZINE HCL 6.25 MG in SODIUM CHLORIDE 0.9% 50 ML IV PRN (07:14)
[2025-01-03] MEDS ORDERED: HYDROmorphone INJ 2 MG/ML SYR/VIAL IV PRN (07:14)
[2025-01-03] MEDS ORDERED: ATROPINE SULFATE 0.1 MG/ML 10ML SYR IV PRN (07:14)
--- NOTE | 2025-01-03 07:28 | History & Physical Bridge Note ---
Date of Service January 03, 2025 History & Physical Bridge Note History & Physical Bridge Note Christopher meadows is a 49-year-old male with a history of spasticity, spinal cord injury. Patient is scheduled today for replacement of his intrathecal pump due to the battery approaching end-of-life. He reports excellent efficacy from the pump and the current dosage. Patient's past medical history, surgical history, medication and allergy list has been reviewed and no changes noted since his last history and physical examination performed. Review of systems is negative for any cardiac, pulmonary, GI, , endocrine or acute neurological complaints other than what is listed in the HPI section. Physical exam: GENERAL: Patient appears older than his stated age. Speech and cognition is intact. Mood and affect is appropriate. Sensorium is clear. He is in no acute distress. HEAD: Normocephalic; atraumatic. EYES: Pupils are round and equal. Mucous membranes moist and pink. No oral lesions noted. ENT: No external ear discharge or lesions. No rhinorrhea or epistaxis. No mucosal lesions. NECK: Full ROM. Trachea is midline. CARDIAC: Regular rate and rhythm. No murmur or gallops noted. CHEST: Regular chest respiration and excursion. Lungs are clear to auscultation. ABDOMEN: No organomegaly appreciated. Bowel sounds are hypoactive. Pump located in the right flank. EXTREMITIES: Flaccid lower extremity. BACK: Loss of lumbar lordosis needs range of motion NEURO: Hyperactive lower extremity reflexes. Patchy diminished sensation in lower extremities in a nondermatomal fashion ASSESSMENT: 1. Spasticity. 2. Intrathecal pump approaching battery end-of-life. RECOMMENDATIONS: Replacement of intrathecal pump was recommended to continue intrathecal baclofen therapy. Potential risks including infection, bleeding, hematoma, nerve injury, persistent back pain, injury to the spinal cord, dural puncture with persistent cerebrospinal fluid leak, post dural puncture headache which may require additional interventional procedures to treat were discussed with the patient in detail. Alternative treatments were also discussed. Patient's questions were answered and gives informed consent to proceed with the proposed procedure.
[2025-01-03] MEDS: ceFAZolin 3000MG 3,000 MG/72.5 ML BAG IV SCH (07:37)
[2025-01-03] MEDS ORDERED: SUGAMMADEX SODIUM 200 MG/2 ML VIAL IV ONE (08:32)
[2025-01-03] MEDS: LIDOCAINE 2%/EPINEPHRINE 1:100,000 20ML INFIL ONE (08:43)
[2025-01-03] MEDS ORDERED: POLYETHYLENE (MIRALAX) 17 GM PACK PO PRN (11:01)
[2025-01-03] MEDS ORDERED: ONDANSETRON INJ 2 MG/ML 2 ML VIAL IV PRN (11:01)
[2025-01-03 12:42] VITALS: RESP 18
--- NOTE | 2025-01-03 13:22 | Anesthesiology Progress Note ---
Date of Service January 03, 2025 Anesthesia Post Procedure Vital Signs Vital Signs: Temp Pulse Pulse Resp BP Pulse Ox O2 Del Method 01/03/25 12:41 36.6 C 78 18 124/82 98 Room Air 01/03/25 11:45 83 16 128/92 95 Room Air 01/03/25 10:45 65 16 124/73 95 Room Air 01/03/25 10:15 77 16 126/82 96 Room Air 01/03/25 09:45 36.4 C L 74 17 117/85 95 Room Air 01/03/25 09:40 36.4 C L 73 15 127/78 93 Room Air 01/03/25 09:30 77 12 122/77 92 Room Air 01/03/25 09:20 79 19 134/72 95 Oxymask 01/03/25 09:12 36 C L 91 H 15 137/81 95 Oxymask 01/03/25 06:26 36.7 C 74 18 163/92 H 98 Room Air O2 Flow Rate 01/03/25 12:41 01/03/25 11:45 01/03/25 10:45 01/03/25 10:15 01/03/25 09:45 01/03/25 09:40 01/03/25 09:30 01/03/25 09:20 9 01/03/25 09:12 9 01/03/25 06:26 Pain Intensity Left Shoulder: Pain Intensity: 10 Transfer of Care Handoff Completed per policy Notes Mental Status: alert / awake / arousable and participated in evaluation Nausea / Vomiting: adequately controlled Pain: adequately controlled Airway Patency, RR, SpO2: stable & adequate BP & HR: stable & adequate Hydration State: stable & adequate Anesthetic Complications: no major complications apparent and Pt Satisfied with anesthetic care
[2025-01-03] MEDS: HYDROCODONE/ACETAMOPHEN 5/325MG TAB PO PRN (15:11)
--- NOTE | 2025-01-03 18:39 | Electrocardiogram Report ---
Test Reason : Blood Pressure : */* mmHG Vent. Rate : 85 BPM Atrial Rate : 85 BPM P-R Int : 94 ms QRS Dur : 98 ms QT Int : 392 ms P-R-T Axes : 35 13 13 degrees QTcB Int : 466 ms Sinus rhythm with frequent Premature ventricular complexes in a pattern of bigeminy Abnormal ECG When compared with ECG of 24-Dec-2024 18:09, Premature ventricular complexes are now Present Confirmed by Ricardo Nelson ([id number]) on 01/03/2025 6:39:03 PM Referred By: Burak Lacy Confirmed By: Ricardo Nelson
[2025-01-03 19:42] VITALS: O2SAT 95
[2025-01-03] MEDS: ZOLPIDEM TARTRATE 5 MG TAB PO PRN (20:27)
[2025-01-04 08:05] VITALS: PULSE 89; TEMP 97.9
[2025-01-04 08:39] VITALS: BP 137/85
[2025-01-04] MEDS: CITALOPRAM 20 MG TAB PO SCH (08:40)
[2025-01-04] MEDS: ACETAMINOPHEN 325 MG TAB PO PRN (11:09)
--- NOTE | 2025-01-04 12:50 | Pain Management Progress Note ---
Date of Service January 04, 2025 Assessment & Plan (1) Spasticity as late effect of cerebrovascular accident (CVA): (2) Presence of intrathecal pump: Plan: Intrathecal pump was replaced with any complications. I will send in a prescription for Hydrocodone/APAP 5/325mg for the patient to take if needed for incisional pain. Keep abdominal binder on 24/7 x 4 weeks (can shower without it) then only during physical activity. He is scheduled for a 1 week and 2 week wound check appointment. He does request home health to help with dressing changes and care of the abdominal binder. Ready for discharge to home. Admission and Anticipated Discharge Date Admission Date: January 03, 2025 Subjective Mild pain at the incision site requiring the use of Hydrocodone. No change in chronic spasticity. He does request home health to come to the home and help with the abdominal binder and possibly for dressing changes too. He denies any fevers or chills. No complaints. Physical Exam Physical Exam: GENERAL: This is a 49 year old male in no acute distress. HEAD/FACE: Normocephalic and atraumatic. EYES: No drainage or conjunctival injection. ENT: Nose without bleeding or discharge. Oral mucosa moist. NECK: Full ROM without apparent pain. No swelling or masses noted. RESPIRATORY: Patient with unlabored breathing. No signs of respiratory distress. CHEST/AXILLA: Chest movement symmetrical. No deformities noted. Abdomen: Abdominal binder in place. Aquacel dressing in place. BACK: Moves without difficulty SKIN: [place], warm and dry. No rash noted. No erythema, warmth, drainage of incision site. MS/EXTREMITY: No swelling, no deformities. Involuntary movements of the left upper extremity. NEURO: Alert and appears oriented. Speech is fluent. Cranial Nerves are grossly intact. PSYCH: Alert, pleasant, affect is calm
--- NOTE | 2025-01-04 12:55 | Discharge Summary ---
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 Patient is unable to control the movements of the left upper extremity. An intrathecal baclofen pump and catheter delivery system was implanted in 2012 and again replaced in 2018. Patient does report improvement in the spasticity of the left arm since the implantation of the intrathecal Baclofen pump and catheter delivery system. He is also receiving Botox injections into the arm which is helping diminish the spasm. Patient does report associated pain with the spasticity. He rates his pain a 6/10 on most days. He will take Hydrocodone sparingly which does help. Case discussed with Dr. Lacy Discharge Data Procedures Performed Operation Date: 01/03/25 07:30 Actual Procedures p Replacement of Intrathecal Medication Administration Pump System (Right) - Burak Lacy MD, [facility] Hospital Course (1) Spasticity as late effect of cerebrovascular accident (CVA): (2) Presence of intrathecal pump: Intrathecal pump was replaced with any complications. I will send in a prescription for Hydrocodone/APAP 5/325mg for the patient to take if needed for incisional pain. Keep abdominal binder on 24/7 x 4 weeks (can shower without it) then only during physical activity. He is scheduled for a 1 week and 2 week wound check appointment. He does request home health to help with dressing changes and care of the abdominal binder. Ready for discharge to home.
--- NOTE | 2025-01-09 14:32 | Operative Report ---
PG Post Operative Report Pre & Post Diagnosis Operation Date: 01/03/25 07:30 Pre-Op Diagnosis: End of battery life intrathecal pump Post-Op Diagnosis: Same I identified the patient and participated in the time-out.: Yes Procedure Operation Date: 01/03/25 07:30 Actual Procedures: 1. Replacement of Intrathecal Medication Administration Pump - Burak Lacy MD, [facility] 2. Interrogation and reprogramming intrathecal pump. 3. Refill intrathecal pump Surgeon Burak Lacy MD, [facility] Brattice Builder Audelia Jha, PAC Estimated Blood Loss 5 Findings Consistent with Post-Op Diagnosis Specimens None Drains None Anesthesia Type General Complications none Disposition Accompanied Patient To Recovery: No Disposition: Recovery Room Description of Procedure INTRATHECAL PUMP REPLACEMENT PROCEDURE PERFORMED: 1. Replacement of Intrathecal Medication Administration Pump - Burak Lacy MD, [facility] 2. Interrogation and reprogramming intrathecal pump. 3. Refill intrathecal pump PREOPERATIVE DIAGNOSIS: 1. Chronic postprocedural pain 2. Postlaminectomy Syndrome of Cervical Region1. Chronic postprocedural pain 2. Postlaminectomy Syndrome of Cervical Region POSTOPERATIVE DIAGNOSIS: Same. COMPLICATIONS: None. SURGEON: Dr. Kevin Lacy. ANESTHESIA: General/LMA. MATERIAL FORWARDED TO THE LAB: None EBL: 5 ml IMPLANTED PUMP SIZE: 40 mL INDICATIONS: The patient had an end of life pump with less than 1 month prior to system failure, thus requiring replacement. The patient was explained the risks, benefits, alternatives of the procedure and agreed to proceed as above. Informed consent was obtained and witnessed. A time out was performed after the patient was brought into the Operating Room. Antibiotics were given. The patient was then induced with general anesthesia without complications and was placed in the supine. The skin was prepped with ChloraPrep and draped in sterile fashion. The existing pump was identified and using a scalpel, electro cautery, and blunt dissection, the existing pump was exposed. The four retaining sutures were removed and the old pump was explanted. The catheter was disconnected from the old pump and free flowing CSF was noted. Free flow of CSF was noted from the catheter. The new pump was opened and prepared according to [employer] standards and was filled with 20 mL of new medication of same type and concentration. The pump catheter was secured to the new pump and secured. Next, the pocket was irrigated with Betadine mixed with sterile normal saline with bacitracin. Hemostasis was checked. The new pump was placed into the pocket in the 1 O'clock position. The intrathecal pump was anchored in the pocket with 4-0 Prolene sutures. The wound was irrigated with bacitracin-containing normal saline. Both wounds were closed in similar fashion using continuous antibiotic coated 0 StrataFIx suture for deeper layer and running antibiotic coated 3-0 StrataFix suture for subcuticular layer. Prineo dressing was aplied to the skin followed by Aquacel. Abdominal binder was placed. At the conclusion of the procedure, the pump was re-interrogated and reprogrammed to deliver samedaily does and infusion rate. The patient was allowed to emerge from general anesthesia and transported to the recovery room in stable condition uneventfully. The patient will follow up at [facility] pain clinic within 7 days for a wound check. I attest to the content of the Intraoperative Record and any orders documented therein. Any exceptions are noted below.
== END 2025-01-04 14:20 | disposition home health service (06) ==
LOC: ASU 06:01 → 3N 06:01